=== PATIENT | female | born 1995 | race Caucasian/White ===

== ENCOUNTER 2017-08-27 06:39 | Emergency (ER) | payer OTHER ==
[~2017-08-27] VITALS: Ht 160 cm; Wt 56.8 kg
[2017-08-27 06:45] VITALS: BP 132/73; PULSE 113; TEMP 99.1
[2017-08-27] MEDS ORDERED: NORCO 325 MG-51 TAB PO (07:30)
== END 2017-08-27 08:08 | disposition home or self-care (01) ==
LOC: COL.ER 06:39
DX: S52.502A Unspecified fracture of the lower end of left radius, initial encounter for closed fracture (principal); F17.210 Nicotine dependence, cigarettes, uncomplicated; W22.8XXA Striking against or struck by other objects, initial encounter; Y92.39 Other specified sports and athletic area as the place of occurrence of the external cause; Y93.71 Activity, boxing
CPT/HCPCS: Q4021

== ENCOUNTER 2017-08-29 04:16 | Emergency (ER) | payer OTHER ==
[~2017-08-29] VITALS: Ht 160 cm; Wt 56.8 kg
[~2017-08-29 04:16] MED LIST: NORCO 325 MG-51 TAB PO
[2017-08-29 04:20] VITALS: BP 133/87; PULSE 71; TEMP 98
== END 2017-08-29 05:31 | disposition home or self-care (01) ==
LOC: COL.ER 04:16
DX: S52.502A Unspecified fracture of the lower end of left radius, initial encounter for closed fracture (principal); X58.XXXA Exposure to other specified factors, initial encounter

== ENCOUNTER 2017-08-29 12:49 | Emergency (ER) | payer OTHER ==
[~2017-08-29] VITALS: Ht 160 cm; Wt 56.8 kg
[2017-08-29 13:01] VITALS: BP 121/81; PULSE 77; TEMP 98.4
== END 2017-08-29 13:24 | disposition left against medical advice (07) ==
LOC: COL.ER 12:49
DX: M79.602 Pain in left arm (principal)

== ENCOUNTER 2017-09-07 19:44 | Emergency (ER) | payer OTHER ==
[~2017-09-07] VITALS: Ht 160 cm; Wt 59.1 kg
[2017-09-07 19:57] VITALS: TEMP 98
[2017-09-07 20:50] LABS: HEMATOCRIT 42.9 % (37.0-47.0); HEMOGLOBIN 13.9 g/dl (12.5-16.0); MEAN CELL VOLUME 87 fl (80.0-100.0); MEAN CORPUSCULAR HEMOGLOBIN 28 pg (27.0-31.0); MEAN CORPUSCULAR HGB CONC 32 g/dl (33.0-37.0); MEAN PLATELET VOLUME 8.5 fl (7.4-10.4); PLATELET COUNT 310 K/mm3 (130-400); RED BLOOD COUNT 4.96 M/mm3 (4.10-5.30); REDCELL DISTRIBUTION WIDTH-CV 14.2 % (11.5-14.5)
[2017-09-07 21:03] LABS: EOSINOPHIL 2 % (0-4); LYMPHOCYTE 40 % (20.0-51.0); NEUTROPHILS 50 % (42.0-75.2); PLATELET ESTIMATE NORMAL (NORMAL)
[2017-09-07 21:06] LABS: ALANINE AMINOTRANSFERASE 37 U/L (9-52); ALBUMIN 4.3 gm/dL (3.5-5.0); ALCOHOL(ethanol),MEDICAL 122 mg/dL; ALKALINE PHOSPHATASE 75 U/L (50-136); ANION GAP 16 mmol/L (7-16); AST,SGOT 28 U/L (15-37); BILIRUBIN,TOTAL 0.1 mg/dL (0.0-1.0); BLOOD UREA NITROGEN 11 mg/dL (7-17); CALCIUM 9.4 mg/dL (8.4-10.2); CARBON DIOXIDE 24 mmol/L (22-30); CHLORIDE 106 mmol/L (98-107); CREATININE, serum 0.77 mg/dL (0.52-1.25); GLUCOSE 80 mg/dL (74-106); POTASSIUM 4.1 mmol/L (3.4-5.0); SODIUM 146 mmol/L (137-145); TOTAL PROTEIN 7.5 gm/dL (6.4-8.2)
[2017-09-07 21:09] LABS: ACETAMINOPHEN < 10 ug/mL (10-30); SALICYLATE < 1.0 mg/dL
[2017-09-07 21:48] LABS: TRICYCLIC ANTIDEPRESS URINE NEGATIVE
[2017-09-07 23:37] VITALS: BP 101/57
[2017-09-08 00:56] VITALS: PULSE 68
== END 2017-09-08 00:58 | disposition home or self-care (01) ==
LOC: COL.ER 19:44
PROVIDERS: Emergency Medicine
DX: F23 Brief psychotic disorder (principal); F91.9 Conduct disorder, unspecified; F17.210 Nicotine dependence, cigarettes, uncomplicated